=== PATIENT | female | born 1940 | race Caucasian/White ===

== ENCOUNTER → 2019-04-01 | Outpatient (CLI) | payer OTHER | LOC: HYPER 06:52 | DX: E11.621 Type 2 diabetes mellitus with foot ulcer (principal); L89.624 Pressure ulcer of left heel, stage 4; L97.322 Non-pressure chronic ulcer of left ankle with fat layer exposed; E11.69 Type 2 diabetes mellitus with other specified complication; M86.071 Acute hematogenous osteomyelitis, right ankle and foot; E11.51 Type 2 diabetes mellitus with diabetic peripheral angiopathy without gangrene; E11.40 Type 2 diabetes mellitus with diabetic neuropathy, unspecified; E46 Unspecified protein-calorie malnutrition; I10 Essential (primary) hypertension; Z79.82 Long term (current) use of aspirin; Z79.84 Long term (current) use of oral hypoglycemic drugs; Z79.01 Long term (current) use of anticoagulants; Z79.2 Long term (current) use of antibiotics ==

== ENCOUNTER → 2019-05-12 | Outpatient (CLI) | payer OTHER | LOC: HYPER 06:13 | DX: E11.621 Type 2 diabetes mellitus with foot ulcer (principal); L97.421 Non-pressure chronic ulcer of left heel and midfoot limited to breakdown of skin; L89.624 Pressure ulcer of left heel, stage 4; E11.51 Type 2 diabetes mellitus with diabetic peripheral angiopathy without gangrene; E11.40 Type 2 diabetes mellitus with diabetic neuropathy, unspecified; I10 Essential (primary) hypertension; E11.69 Type 2 diabetes mellitus with other specified complication; M86.071 Acute hematogenous osteomyelitis, right ankle and foot; E46 Unspecified protein-calorie malnutrition; Z79.82 Long term (current) use of aspirin; Z79.84 Long term (current) use of oral hypoglycemic drugs; Z79.01 Long term (current) use of anticoagulants; Z79.2 Long term (current) use of antibiotics ==

== ENCOUNTER → 2019-05-31 | Outpatient (CLI) | payer OTHER | LOC: HYPER 06:50 | DX: E11.621 Type 2 diabetes mellitus with foot ulcer (principal); L97.421 Non-pressure chronic ulcer of left heel and midfoot limited to breakdown of skin; L89.624 Pressure ulcer of left heel, stage 4; L89.893 Pressure ulcer of other site, stage 3; L97.521 Non-pressure chronic ulcer of other part of left foot limited to breakdown of skin; E11.40 Type 2 diabetes mellitus with diabetic neuropathy, unspecified; E11.51 Type 2 diabetes mellitus with diabetic peripheral angiopathy without gangrene; E11.69 Type 2 diabetes mellitus with other specified complication; M86.071 Acute hematogenous osteomyelitis, right ankle and foot; I10 Essential (primary) hypertension; E46 Unspecified protein-calorie malnutrition; Z79.82 Long term (current) use of aspirin; Z79.84 Long term (current) use of oral hypoglycemic drugs; Z79.01 Long term (current) use of anticoagulants; Z79.2 Long term (current) use of antibiotics ==

== ENCOUNTER → 2019-07-01 | Outpatient (CLI) | payer OTHER | LOC: HYPER 06:57 | DX: E11.621 Type 2 diabetes mellitus with foot ulcer (principal); L89.624 Pressure ulcer of left heel, stage 4; L97.421 Non-pressure chronic ulcer of left heel and midfoot limited to breakdown of skin; E11.51 Type 2 diabetes mellitus with diabetic peripheral angiopathy without gangrene; E11.40 Type 2 diabetes mellitus with diabetic neuropathy, unspecified; I10 Essential (primary) hypertension; E11.69 Type 2 diabetes mellitus with other specified complication; M86.071 Acute hematogenous osteomyelitis, right ankle and foot; E46 Unspecified protein-calorie malnutrition; Z79.82 Long term (current) use of aspirin; Z79.84 Long term (current) use of oral hypoglycemic drugs; Z79.01 Long term (current) use of anticoagulants; Z79.2 Long term (current) use of antibiotics ==

== ENCOUNTER → 2019-07-29 | Outpatient (CLI) | payer OTHER | LOC: HYPER 07:31 | DX: E11.621 Type 2 diabetes mellitus with foot ulcer (principal); L89.624 Pressure ulcer of left heel, stage 4; L97.421 Non-pressure chronic ulcer of left heel and midfoot limited to breakdown of skin; E11.51 Type 2 diabetes mellitus with diabetic peripheral angiopathy without gangrene; E11.40 Type 2 diabetes mellitus with diabetic neuropathy, unspecified; E11.69 Type 2 diabetes mellitus with other specified complication; M86.8X8 Other osteomyelitis, other site; E46 Unspecified protein-calorie malnutrition; Z79.82 Long term (current) use of aspirin; Z79.84 Long term (current) use of oral hypoglycemic drugs; Z79.2 Long term (current) use of antibiotics; Z79.01 Long term (current) use of anticoagulants ==

== ENCOUNTER → 2019-08-26 | Outpatient (CLI) | payer OTHER | LOC: HYPER 03:40 | DX: E11.621 Type 2 diabetes mellitus with foot ulcer (principal); L89.624 Pressure ulcer of left heel, stage 4; L97.421 Non-pressure chronic ulcer of left heel and midfoot limited to breakdown of skin; E11.51 Type 2 diabetes mellitus with diabetic peripheral angiopathy without gangrene; E11.40 Type 2 diabetes mellitus with diabetic neuropathy, unspecified; I10 Essential (primary) hypertension; E11.69 Type 2 diabetes mellitus with other specified complication; M86.8X8 Other osteomyelitis, other site; E46 Unspecified protein-calorie malnutrition; Z79.82 Long term (current) use of aspirin; Z79.84 Long term (current) use of oral hypoglycemic drugs; Z79.01 Long term (current) use of anticoagulants; Z79.2 Long term (current) use of antibiotics ==

== ENCOUNTER → 2021-11-19 | Outpatient (CLI) | payer OTHER | LOC: HYPER 08:29 | PROVIDERS: ATTEND Emergency Medicine | DX: E11.621 Type 2 diabetes mellitus with foot ulcer (principal); I70.245 Atherosclerosis of native arteries of left leg with ulceration of other part of foot; L97.523 Non-pressure chronic ulcer of other part of left foot with necrosis of muscle; E11.43 Type 2 diabetes mellitus with diabetic autonomic (poly)neuropathy; E11.51 Type 2 diabetes mellitus with diabetic peripheral angiopathy without gangrene; E11.69 Type 2 diabetes mellitus with other specified complication; M86.9 Osteomyelitis, unspecified; R60.0 Localized edema; I10 Essential (primary) hypertension; I48.0 Paroxysmal atrial fibrillation; F41.9 Anxiety disorder, unspecified; Z85.828 Personal history of other malignant neoplasm of skin; Z79.82 Long term (current) use of aspirin; Z79.899 Other long term (current) drug therapy; Z90.49 Acquired absence of other specified parts of digestive tract; Z89.611 Acquired absence of right leg above knee ==

== ENCOUNTER → 2021-11-26 | Outpatient (CLI) | payer OTHER ==
[~2021-11-26] MED LIST: ASA81BEC PO; GRALISE1 EAC1 PO; LEVOFLOXACIN500 MG PO; LISINOPRIL5 MG PO; NORVASC5 MG PO; PLAVIX 75 MG TA75 MG PO
== END ==
LOC: SJCVCIMAG 12:38
PROVIDERS: ATTEND Emergency Medicine
DX: I70.202 Unspecified atherosclerosis of native arteries of extremities, left leg (principal); L97.529 Non-pressure chronic ulcer of other part of left foot with unspecified severity; I48.0 Paroxysmal atrial fibrillation; E11.9 Type 2 diabetes mellitus without complications; I10 Essential (primary) hypertension; Z79.82 Long term (current) use of aspirin; Z79.899 Other long term (current) drug therapy

== ENCOUNTER → 2021-11-26 | Outpatient (CLI) | payer OTHER | LOC: HYPER 08:03 | PROVIDERS: ATTEND Emergency Medicine | DX: E11.621 Type 2 diabetes mellitus with foot ulcer (principal); I70.245 Atherosclerosis of native arteries of left leg with ulceration of other part of foot; L97.523 Non-pressure chronic ulcer of other part of left foot with necrosis of muscle; E11.43 Type 2 diabetes mellitus with diabetic autonomic (poly)neuropathy; E11.51 Type 2 diabetes mellitus with diabetic peripheral angiopathy without gangrene; E11.69 Type 2 diabetes mellitus with other specified complication; M86.9 Osteomyelitis, unspecified; R60.0 Localized edema; I10 Essential (primary) hypertension; I48.0 Paroxysmal atrial fibrillation; F41.9 Anxiety disorder, unspecified; Z85.828 Personal history of other malignant neoplasm of skin; Z79.82 Long term (current) use of aspirin; Z90.49 Acquired absence of other specified parts of digestive tract; Z89.611 Acquired absence of right leg above knee ==

== ENCOUNTER → 2021-12-04 | Outpatient (CLI) | payer OTHER ==
[~2021-12-04] VITALS: Ht 162.6 cm; Wt 54.4 kg
[2021-12-04 07:31] VITALS: BP 187/70
[2021-12-04 07:50] LABS: HEMOGLOBIN 10.4 gm/dL (12.0-15.0); MCH 28.3 pg (26.0-34.0); MCHC 32.6 g/dL (28.0-37.0); MCV 86.7 fL (80.0-100.0); RBC 3.69 mil/uL (4.20-5.00); RDW 13.8 % (10.5-14.5); WBC 12.6 thou/uL (4.0-11.0)
[2021-12-04 08:03] LABS: CALCIUM 9.5 mg/dL (8.5-10.1); CREATININE 1.5 mg/dL (0.6-1.0); POTASSIUM 3.7 mmol/L (3.5-5.1)
== END | disposition home or self-care (01) ==
LOC: CATH 06:46
PROVIDERS: ATTEND Nuclear Medicine Nuclear Cardiology
DX: I70.248 Atherosclerosis of native arteries of left leg with ulceration of other part of lower leg (principal); L97.929 Non-pressure chronic ulcer of unspecified part of left lower leg with unspecified severity; I70.1 Atherosclerosis of renal artery; I10 Essential (primary) hypertension; E11.9 Type 2 diabetes mellitus without complications; I48.91 Unspecified atrial fibrillation; Z98.890 Other specified postprocedural states; Z79.899 Other long term (current) drug therapy; Z79.82 Long term (current) use of aspirin; Z79.01 Long term (current) use of anticoagulants

== ENCOUNTER → 2021-12-19 | Outpatient (CLI) | payer OTHER | LOC: HYPER 08:25 | PROVIDERS: ATTEND Emergency Medicine | DX: I70.245 Atherosclerosis of native arteries of left leg with ulceration of other part of foot (principal); E11.621 Type 2 diabetes mellitus with foot ulcer; L97.523 Non-pressure chronic ulcer of other part of left foot with necrosis of muscle; E11.43 Type 2 diabetes mellitus with diabetic autonomic (poly)neuropathy; E11.69 Type 2 diabetes mellitus with other specified complication; M86.9 Osteomyelitis, unspecified; E11.51 Type 2 diabetes mellitus with diabetic peripheral angiopathy without gangrene; R60.0 Localized edema; I48.0 Paroxysmal atrial fibrillation; I10 Essential (primary) hypertension; F41.9 Anxiety disorder, unspecified; Z79.82 Long term (current) use of aspirin; Z79.899 Other long term (current) drug therapy; Z95.828 Presence of other vascular implants and grafts; Z89.511 Acquired absence of right leg below knee; Z89.611 Acquired absence of right leg above knee; Z85.828 Personal history of other malignant neoplasm of skin ==